=== PATIENT | female | born 2000 | race Two or more races ===

== ENCOUNTER 2019-04-24 13:12 | Emergency (ER) | payer OTHER ==
[2019-04-24 15:16] VITALS: BP 130/77
--- NOTE | 2019-04-24 15:18 | UC ---
Throat Pain/Nasal Brett HPI - HPI Summary HPI Summary: 18 yo with a one week history of sore throat, cough and chest congestion. She comes to day due to having over a week of persistent symptoms, and her chest feels heavy and tight; energy remains low and she does not see significant improvement. Visited her family last weekend and went to [facility] for [place], now several family members are feeling unwell. - History of Current Complaint Chief Complaint: UCRespiratory Stated Complaint: CHEST CONGESTION Time Seen by Provider: 04/24/19 15:12 Hx Obtained From: Patient ?: No - uncertain LMP, condoms for contraception Onset/Duration: Gradual Onset, Lasting Days - 7-8 Severity: Moderate Pain Intensity: 4 Cough: Productive Associated Signs & Symptoms: Positive: Negative, Nasal Discharge - Epiglottits Risk Factors Epiglottis Risk Factors: Negative - Allergies/Home Medications Allergies/Adverse Reactions: Allergies Allergy/AdvReac Type Severity Reaction Status Date / Time No Known Allergies Allergy Verified 04/24/19 14:17 Home Medications: Home Medications NK [No Home Medications Reported] 04/24/19 [History Confirmed 04/24/19] PMH/Surg Hx/FS Hx/Imm Hx Previously Healthy: Yes - Surgical History Surgical History: None - Family History Known Family History: Positive: Non-Contributory - Social History Occupation: Student Lives: Dormitory/Roommates Alcohol Use: Weekly Substance Use Type: None Smoking Status (MU): Never Smoked Tobacco Review of Systems All Other Systems Reviewed And Are Negative: Yes Constitutional: Positive: Fatigue Skin: Positive: Negative Eyes: Positive: Negative ENT: Positive: Sore Throat, Nasal Discharge Respiratory: Positive: Cough Cardiovascular: Positive: Chest Pain - substernal chest pain, not associated with inspiration. Gastrointestinal: Positive: Negative Genitourinary: Positive: Negative, Other - uses condoms for contraception Motor: Positive: Negative Neurovascular: Positive: Negative Musculoskeletal: Positive: Negative Neurological: Positive: Headache - off and on Psychological: Positive: Negative Is Patient Immunocompromised?: No Physical Exam Triage Information Reviewed: Yes Appearance: Ill-Appearing - looks mildly unwell, without apparent shortness of breath, breathing comfortably. Vital Signs: Initial Vital Signs Temp 99.3 F 04/24/19 14:13 Pulse 60 04/24/19 14:13 Resp 16 04/24/19 14:13 BP 141/96 04/24/19 14:13 Pulse Ox 100 02/03/20 14:13 Eyes: Positive: Conjunctiva Clear ENT: Positive: Pharyngeal erythema. Negative: Tonsillar swelling, Tonsillar exudate Neck: Positive: Supple, Nontender, No Lymphadenopathy Respiratory: Positive: Lungs clear, Normal breath sounds, No accessory muscle use, Other: - mild soreness with palpation of the sternochondral junctions. Cardiovascular: Positive: RRR, No Murmur Musculoskeletal Exam: Normal Neurological Exam: Normal Psychological Exam: Normal Skin Exam: Normal Diagnostics - Laboratory Lab Results: Flu B positive Urine negative. Throat Pain/Nasal Course/Dx - Course Course Of Treatment: Influenza B positive. Chest xray shows no evidence of secondary pneumonia. - Differential Dx/Diagnosis Differential Diagnosis/HQI/PQRI: Influenza, Tonsillitis, Other - pneumonia. Provider Diagnosis: Influenza B Discharge ED - Sign-Out/Discharge Documenting (check all that apply): Patient Departure All imaging exams completed and their final reports reviewed: Yes - Discharge Plan Condition: Stable Disposition: HOME Patient Education Materials: Influenza (ED) Forms: *School Release Referrals: No Primary Care Phys,NOPCP [Primary Care Provider] - Additional Instructions: Continue high intake of fluids, and rest as much as you can. Typical flu symptoms can last up to 10 days. Use ibuprofen 600mg up to 3 times daily for chest tightness. Your chest xray shows no evidence of pneumonia. - Billing Disposition and Condition Condition: STABLE Disposition: Home
[2019-04-24 15:39] LABS: Influenza B Molecular POSITIVE (Negative)
== END 2019-04-24 16:25 | disposition home or self-care (01) ==
LOC: UCEAST 13:12
DX: J10.1 Influenza due to other identified influenza virus with other respiratory manifestations (principal)
CPT/HCPCS: 71046; 84702; 99202; G0463